=== PATIENT | male | born 1940 | race Caucasian/White ===

== ENCOUNTER → 2016-10-06 | Outpatient (CLI) | payer OTHER | LOC: MMPC 11:11 | DX: R53.83 Other fatigue (principal); R73.9 Hyperglycemia, unspecified; I10 Essential (primary) hypertension; E29.1 Testicular hypofunction; R20.0 Anesthesia of skin; R20.2 Paresthesia of skin; J45.909 Unspecified asthma, uncomplicated; E78.5 Hyperlipidemia, unspecified; I25.10 Atherosclerotic heart disease of native coronary artery without angina pectoris | CPT/HCPCS: 99213; G0463 ==

== ENCOUNTER → 2016-10-15 | Outpatient (CLI) | payer OTHER ==
[2016-10-15 12:37] LABS: HEMOGLOBIN A1C 5.72 % (4.2-6.0); MEAN BLOOD GLUCOSE (CALC) 104.476 mg/dL
== END ==
LOC: MOB LAB 08:48
DX: R73.9 Hyperglycemia, unspecified (principal)
CPT/HCPCS: 36415; 83036

== ENCOUNTER → 2016-11-05 | Outpatient (CLI) | payer OTHER | LOC: MMPC 11:11 | DX: E29.1 Testicular hypofunction (principal) | CPT/HCPCS: G0463; J1071 ==

== ENCOUNTER → 2016-11-26 | Outpatient (CLI) | payer OTHER | LOC: MMPC 09:00 | DX: E29.1 Testicular hypofunction (principal) | CPT/HCPCS: G0463; J1071 ==

== ENCOUNTER → 2016-12-17 | Outpatient (CLI) | payer OTHER | LOC: MMPC 09:00 | DX: E29.1 Testicular hypofunction (principal) | CPT/HCPCS: G0463; J1071 ==

== ENCOUNTER → 2017-01-08 | Outpatient (CLI) | payer OTHER | LOC: MMPC 11:11 | DX: E29.1 Testicular hypofunction (principal) | CPT/HCPCS: G0463; J1071 ==

== ENCOUNTER → 2017-01-28 | Outpatient (CLI) | payer OTHER | LOC: MMPC 11:11 | DX: E29.1 Testicular hypofunction (principal) | CPT/HCPCS: G0463; J1071 ==

== ENCOUNTER → 2017-02-18 | Outpatient (CLI) | payer OTHER | LOC: MMPC 11:11 | DX: E29.1 Testicular hypofunction (principal) | CPT/HCPCS: G0463; J1071 ==

== ENCOUNTER → 2017-03-11 | Outpatient (CLI) | payer OTHER | LOC: MMPC 11:11 | DX: E29.1 Testicular hypofunction (principal) | CPT/HCPCS: G0463; J1071 ==

== ENCOUNTER → 2017-04-01 | Outpatient (CLI) | payer OTHER ==
[2017-04-01 12:48] LABS: BASOPHILS % (AUTO) 1.5 % (0-1); EOSINOPHILS # (AUTO) 0.24 10*3/UL; EOSINOPHILS % (AUTO) 3.5 % (0-8); HEMATOCRIT 54.3 % (42.0-52.0); HEMOGLOBIN 18.4 g/dL (14.0-18.0); LYMPHOCYTES # (AUTO) 1.14 10*3/uL; MEAN CORPUSCULAR HEMOGLOBIN 30.9 PG (27-31); MEAN CORPUSCULAR HGB CONC 33.9 g/dL (33-37); MEAN CORPUSCULAR VOLUME 91.1 FL (80-90); MONOCYTES # (AUTO) 0.82 10*3/UL (0.3-0.8); MONOCYTES % (AUTO) 12.1 % (5-15); NEUTROPHILS # (AUTO) 4.46 10*3/UL; NEUTROPHILS % (AUTO) 65.5 % (50-80); RED BLOOD COUNT 5.96 10^6/uL (4.70-6.10)
[2017-04-01 12:49] LABS: PLATELET MORPHOLOGY COMMENT NORMAL MORPHOLOGY (NORM); RBC MORPHOLOGY COMMENT NORMAL MORPHOLOGY (NORM); WBC MORPHOLOGY COMMENT NORMAL MORPHOLOGY (NORM)
[2017-04-01 12:54] LABS: BILIRUBIN,URINE NEGATIVE (NEG); CLARITY,URINE CLEAR (CLEAR); COLOR,URINE YELLOW; GLUCOSE, URINE (UA) NEGATIVE (NEG); NITRATE,URINE NEGATIVE (NEG); OCCULT BLOOD,URINE NEGATIVE (NEG); PH,URINE 5.5 (5.0-8.5); PROTEIN,URINE NEGATIVE (NEG)
[2017-04-01 13:00] LABS: BUN/CREATININE RATIO 20.83 (6-20); CALCIUM 8.5 mg/dL (8.7-10.7); SERUM ALBUMIN 4.1 g/dL (3.5-4.8)
[2017-04-01 13:01] LABS: SQUAMOUS EPITHELIAL CELL,UR FEW; URINE SAMPLE TYPE VOIDED SPECIMEN; WBC,URINE 0-1
[2017-04-01 13:16] LABS: VITAMIN D 25-HYDROXY 67.6 NG/ML (30-100)
== END ==
LOC: MOB LAB 10:19
DX: R53.83 Other fatigue (principal); E78.5 Hyperlipidemia, unspecified; J45.909 Unspecified asthma, uncomplicated; I25.10 Atherosclerotic heart disease of native coronary artery without angina pectoris; I10 Essential (primary) hypertension; E55.9 Vitamin D deficiency, unspecified; E29.1 Testicular hypofunction; Z12.5 Encounter for screening for malignant neoplasm of prostate
CPT/HCPCS: 36415; 80053; 81001; 82306; 84403; 84443; 85025; G0103

== ENCOUNTER → 2017-04-23 | Outpatient (CLI) | payer OTHER | LOC: MMPC 11:11 | DX: E29.1 Testicular hypofunction (principal) | CPT/HCPCS: G0463; J1071 ==